=== PATIENT | female | born 1960 | race Caucasian/White ===

== ENCOUNTER 2017-06-12 18:10 | Emergency (ER) | payer BC ==
[2017-06-12 18:18] VITALS: BMI 33.0
--- NOTE | 2017-06-12 18:46 | DR.FBACK ---
HPI - Time Seen Time seen: 18:45 - PCP Primary Care Physician: KEITH HUA - HPI Comment HPI Comment: GETTING WORSE. - Complaint Chief Complaint Doctor Comments: LEFT FLANK PAIN TIMES SEVERAL HOURS. Chief Complaint:: PT C/O BEING WEAK AND FEELING LIKE SOMETHING IS MOVING AROUND IN HER KIDNEYS AND THAT WHEN SHE MOVED SHE FEELS A SHARP PAIN TO HER LEFT FLANK AREA AND I ABOUT MADE HER JUMP". Self Treatment fo Chief Complaint: PT DENIES ANY PROBLEMS VOIDING, - Reviewed Nurses Notes Review: Yes - Source History Provided: Patient - Mode of Arrival Mode of Arrival: Ambulatory - Timing Onset of Chief Complaint: 06/12/17 - Duration Duration: Constant Duration: Hours - Location Back Pain Location: Left, Flank - Severity Severity: Moderate - Quality Quality: Aching, Sharp - Context Onset: Spontaneous Circumstance: Spontaneous History of: None - Modifying Factors Worsened By: None - Associated Signs and Symptoms Back Pain Symptoms: None Numbness: None Weakness: None PMH - PMH Past Medical History: No Past Surgical History: Yes Past Surgical History Comment: TIMES ONE . - Family History History of Family Medical Conditions: No - Social History Does patient currently use any type of tobacco product: No Have you used tobacco products in the last 12 months: No Type of Tobacco Use: None Does any household member use tobacco: No Alcohol Use: None Do you use any recreational Drugs:: No Lives With: Family Lives Where: Home - infectious screening In the last 2 months have you had wt loss of >10#?: NO Have you had fever, night sweats or hemotysis?: No Have you traveled outside the country in the last 6 months?: No Isolation: Standard ROS - Review of Systems Constitutional: No Symptoms Reported Eyes: No Symptoms Reported ENTM: No Symptoms Reported Respiratoy: No Symptoms Reported Cardiovascular: No Symptoms Reported Gastrointestinal/Abdominal: No Symptoms Reported Genitourinary: No Symptoms Reported Neurological: No Symptoms Reported Musculoskeletal: Back Pain, Left, Other (FLANK) Integumentary: No Symptoms Reported Hematologic/Lymphatic: No Symptoms Reported Endocrine: No Symptoms Reported All Other Systems: Reviewed and Negative PE - Vitals Vital Signs: Temp Pulse Pulse Resp BP BP Pulse Ox 06/12/17 20:20 79 119/69 97 06/12/17 18:13 98.1 F 80 20 125/57 99 - General Limitations: No Limitations General Appearance: Alert - Head Head Exam: Normal Inspection - Eyes Eye exam: Normal Appearance - ENT ENT Exam: Normal External Ear Exam - Chest Chest Inspection: Symmetric Chest Wall Rise - Respiratory Respiratory Exam: Normal Lung Sounds Bilat Respiratory Exam: Bilateral Clear to Auscultation - Cardiovascular Cardiovascular Exam: Regular Rate, Normal Rhythm, Normal Heart Sounds - Abdominal Exam Abdominal Exam: Normal Bowel Sounds, Soft. negative: Tenderness - Genitourinary External Exam: Female: Normal External Exam : Speculum Exam (Female): Normal Speculum Exam : Bimanual Exam (female): Normal Bimanual exam - Extremities Extremities Exam: Normal Inspection - Back Back Exam: (L) CVA Tenderness - Neurological Neurological Exam: Alert, Oriented X3 - Psychiatric Psychiatric Exam: Normal Affect, Normal Mood - Skin Skin Exam: Normal Color MDM - Additional Information Additional Information Obtained From: Family - Differential Diagnosis Differential Diagnosis: Bowel Obstruction, DJD, Musculoskeletal Pain, Pyelonephritis, Strain, Urolithiasis Course - Treatment Treatment: SEE ORDERS. - Education/Counseling Education/Counseling: Patient, Family, Education Educated On: Diagnosis, Needs for Follow Up ROR - Labs Reviewed Laboratory Results Reviewed?: Yes Result Diagrams: 06/12/17 18:52 06/12/17 18:52 Laboratory: WBC 4.8 X10^3/uL (3.6-10.0) 06/12/17 18:52 RBC 4.63 X10^6/uL (3.5-5.4) 06/12/17 18:52 Hgb 13.2 g/dL (12.0-16.0) 06/12/17 18:52 Hct 39.1 % (36.0-47.0) 06/12/17 18:52 MCV 84.4 fL (80.0-100.0) 06/12/17 18:52 MCH 28.6 pg (27.0-34.0) 06/12/17 18:52 MCHC 33.8 g/dL (33.0-35.0) 06/12/17 18:52 RDW 14.2 % (11.6-16.5) 06/12/17 18:52 Plt Count 256 X10^3/uL (150.0-450.0) 06/12/17 18:52 MPV 7.8 fL (7.4-11.0) 06/12/17 18:52 Neut % 52.2 % (42.0-75.0) 06/12/17 18:52 Lymph % 35.7 % (21.0-51.0) 06/12/17 18:52 [place] % 8.9 % (0.0-13.0) 06/12/17 18:52 Eos % 2.0 % (0.9-2.9) 06/12/17 18:52 Baso % 1.2 % (0.2-1.0) H 06/12/17 18:52 Neut # 2.5 x10^3/uL (2.2-4.8) 06/12/17 18:52 Lymph # 1.7 X10^3/uL (1.3-2.9) 06/12/17 18:52 [place] # 0.4 x10^3/uL (0.3-0.8) 06/12/17 18:52 Eos # 0.1 x10^3/uL (0.0-0.2) 06/12/17 18:52 Baso # 0.1 X10^3/uL (0.0-0.1) 06/12/17 18:52 Absolute Nucleated RBC 0.1 /100WBC 06/12/17 18:52 Sodium 142 mmol/L (136-145) 06/12/17 18:52 Corrected Sodium 143 mmol/L (136-145) 06/12/17 18:52 Potassium 4.0 mmol/L (3.5-5.1) 06/12/17 18:52 Chloride 105 mmol/L (98-107) 06/12/17 18:52 Carbon Dioxide 27.9 mmol/L (21-32) 06/12/17 18:52 BUN 10 mg/dL (7-18) 06/12/17 18:52 Creatinine 0.84 mg/dL (0.55-1.02) 06/12/17 18:52 Est GFR (MDRD) Af Amer > 60 (>60) 06/12/17 18:52 Est GFR (MDRD) Non-Af > 60 (>60) 06/12/17 18:52 Glucose 121 mg/dL (65-99) H 06/12/17 18:52 Calcium 8.5 mg/dL (8.5-10.1) 06/12/17 18:52 Corrected Calcium TNP 06/12/17 18:52 Total Bilirubin 0.20 mg/dL (0.2-1.0) 06/12/17 18:52 AST 16 Units/L (15-37) 06/12/17 18:52 ALT 28 Units/L (12-78) 06/12/17 18:52 Alkaline Phosphatase 75 Units/L (46-116) 06/12/17 18:52 Total Protein 7.9 g/dL (6.4-8.2) 06/12/17 18:52 Albumin 3.8 g/dL (3.4-5.0) 06/12/17 18:52 Globulin 4.1 g/dL (2.5-4.5) 06/12/17 18:52 Albumin/Globulin Ratio 0.9 Ratio (1.1-2.1) L 06/12/17 18:52 Specimen Type Clean catch urine 06/12/17 18:36 Urine Color Yellow (YELLOW) 06/12/17 18:36 Urine Appearance Clear (CLEAR) 06/12/17 18:36 Urine pH 5.0 (5.0 - 8.0) 06/12/17 18:36 Ur Specific [place] 1.015 (1.000-1.030) 06/12/17 18:36 Urine Protein Negative (NEGATIVE) 06/12/17 18:36 Urine Glucose (UA) Negative (NEGATIVE) 06/12/17 18:36 Urine Ketones Negative (NEGATIVE) 06/12/17 18:36 Urine Occult Blood Negative (NEGATIVE) 06/12/17 18:36 Urine Nitrite Negative (NEGATIVE) 06/12/17 18:36 Urine Bilirubin Negative (NEGATIVE) 06/12/17 18:36 Urine Urobilinogen Normal (NORMAL) 06/12/17 18:36 Ur Leukocyte Esterase Negative (NEGATIVE) 06/12/17 18:36 Urine RBC None seen /HPF (NONE SEEN) 06/12/17 18:36 Urine WBC None seen /HPF (NONE SEEN) 06/12/17 18:36 Ur Squamous Epith Cells Rare /HPF (NEGATIVE) 06/12/17 18:36 Urine Bacteria Negative /HPF (NEGATIVE) 06/12/17 18:36 Ur Culture Indicated? No/not indicated 06/12/17 18:36 - XRAY XRAY Findings: REPORT DISCUSS WITH PATIENT. - Diagnosis Discharge Problem: Left flank pain Back strain Qualifiers: Encounter type: initial encounter Qualified Code(s): S39.012A - Strain of muscle, fascia and tendon of lower back, initial encounter - Discharge Plan Disposition: HOME, SELF-CARE Condition: Stable Prescriptions: Cyclobenzaprine HCl [FLEXERIL 10 MG *] 10 mg PO TID #15 tab Ibuprofen [MOTRIN TAB 600 MG *] 600 mg PO TID PRN #20 tab PRN Reason: Pain/Inflammation - Follow ups/Referrals Follow ups/Referrals: Reba Hernández [Primary Care Provider] - 3 days - Instructions Instructions: Musculoskeletal Pain, Flank Pain, [id number], Back Pain, Adult , [id number] Additional Instructions: RETUREN TO ED IF WORSE.
[2017-06-12 18:52] LABS: BILIRUBIN,URINE NEGATIVE (NEGATIVE); BLOOD/HEMOGLOBIN,URINE NEGATIVE (NEGATIVE); GLUCOSE, URINE NEGATIVE (NEGATIVE); KETONES,URINE NEGATIVE (NEGATIVE); LEUKOCYTE ESTERASE ,URINE NEGATIVE (NEGATIVE); NITRITES,URINE NEGATIVE (NEGATIVE); PROTEIN,URINE NEGATIVE (NEGATIVE); UROBILINOGEN,URINE NORMAL (NORMAL)
[2017-06-12 18:56] LABS: APPEARANCE,URINE CLEAR (CLEAR); BACTERIA,URINE NEGATIVE /HPF (NEGATIVE); COLOR,URINE YELLOW (YELLOW); RBC,URINE NONE SEEN /HPF (NONE SEEN); SQUAMOUS EPITHELIAL CELL,UR RARE /HPF (NEGATIVE)
[2017-06-12 19:02] LABS: BASOPHILS # (AUTO) 0.1 X10^3/uL (0.0-0.1); BASOPHILS % (AUTO) 1.2 % (0.2-1.0); EOSINOPHILS # (AUTO) 0.1 x10^3/uL (0.0-0.2); HEMATOCRIT 39.1 % (36.0-47.0); HEMOGLOBIN 13.2 g/dL (12.0-16.0); LYMPHOCYTES # (AUTO) 1.7 X10^3/uL (1.3-2.9); LYMPHOCYTES % (AUTO) 35.7 % (21.0-51.0); MEAN CORPUSCULAR HEMOGLOBIN 28.6 pg (27.0-34.0); MEAN CORPUSCULAR HGB CONC 33.8 g/dL (33.0-35.0); MEAN CORPUSCULAR VOLUME 84.4 fL (80.0-100.0); MEAN PLATELET VOLUME 7.8 fL (7.4-11.0); MONOCYTES # (AUTO) 0.4 x10^3/uL (0.3-0.8); MONOCYTES % (AUTO) 8.9 % (0.0-13.0); NEUTROPHILS # (AUTO) 2.5 x10^3/uL (2.2-4.8); NEUTROPHILS % (AUTO) 52.2 % (42.0-75.0); PLATELET COUNT 256 X10^3/uL (150.0-450.0); RED BLOOD COUNT 4.63 X10^6/uL (3.5-5.4); RED CELL DISTRIBUTION WIDTH 14.2 % (11.6-16.5); WHITE BLOOD COUNT 4.8 X10^3/uL (3.6-10.0)
[2017-06-12 19:13] LABS: ALANINE AMINOTRANSFERASE 28 Units/L (12-78); ALBUMIN 3.8 g/dL (3.4-5.0); ALKALINE PHOSPHATASE 75 Units/L (46-116); ASPARTATE AMINO TRANSFERASE 16 Units/L (15-37); BLOOD UREA NITROGEN 10 mg/dL (7-18); CALCIUM 8.5 mg/dL (8.5-10.1); CARBON DIOXIDE 27.9 mmol/L (21-32); CHLORIDE 105 mmol/L (98-107); COR NA(FOR HYPERGLY) 143 mmol/L (136-145); CREATININE 0.84 mg/dL (0.55-1.02); SODIUM 142 mmol/L (136-145); TOTAL PROTEIN 7.9 g/dL (6.4-8.2); eGFR BLACK RACES > 60 (>60); eGFR NON BLACK RACES > 60 (>60)
--- NOTE | 2017-06-12 19:27 | CT ---
HISTORY: Left flank pain Study: CT abdomen and pelvis without contrast Comparison: None Technique: Multiple axial images of the abdomen and pelvis were obtained without IV contrast. Dose reduction t echniques including Automated Exposure Control (AEC) and adjustment of mA and kV were utilized. Findings: Please note evaluation is limited without use of IV contrast. The visualized lung bases are clear. The liver, spleen, pancreas, kidneys, and adrenal glands are un remarkable in their unenhanced CT appearance. The gallbladder is normal. No renal calculi or obstruct lola uropathy identified. No free intraperitoneal air. No evidence of intestinal obstruction or inflammation. The appendix is n ormal. No free fluid is seen. The soft tissues and osseous structures are unremarkable. Limited evaluation of vascular structures d ue to lack of contrast. No pathologically enlarged lymph nodes are identified. The urinary bladder is unremarkable IMPRESSION: 1.Negative noncontrast CT of the abdomen and pelvis. Reported By:
[2017-06-12] MEDS ORDERED: NORFLEX INJ IM ONE (19:59)
[2017-06-12] MEDS ORDERED: TORADOL 60 MG VIAL IM ONE (19:59)
[2017-06-12] MEDS ORDERED: NORFLEX INJ ONE (20:02)
[2017-06-12] MEDS ORDERED: TORADOL 60 MG VIAL ONE (20:02)
[2017-06-12 20:21] VITALS: BP 119/69
== END 2017-06-12 20:21 | disposition home or self-care (01) ==
LOC: ER 18:23
DX: S39.012A Strain of muscle, fascia and tendon of lower back, initial encounter (principal); R10.84 Generalized abdominal pain; Y33.XXXA Other specified events, undetermined intent, initial encounter; Y92.9 Unspecified place or not applicable
CPT/HCPCS: 36415; 74176; 80053; 81001; 85025; 96372; 99283; 99284; J1885; J2360